=== PATIENT | male | born 1975 | race African-American/Black ===

== ENCOUNTER 2017-04-28 14:01 | Emergency (ER) | payer SELFPAY ==
[2016-01-30 03:30] VITALS: BP 118/67
[~2017-04-28] VITALS: Ht 177.8 cm; Wt 70.3 kg
[2017-04-28] MEDS ORDERED: LIDOCAINE 2% VISCOUS 15 ML SOLUTION. SWSW ONE (14:30)
[2017-04-28] MEDS ORDERED: IBUPROFEN 800 MG TABLET. PO ONE (14:30)
[2017-04-28] MEDS ORDERED: ACETAMINOPHEN 500 MG TABLET PO ONE (14:30)
[2017-04-28] MEDS ORDERED: AMOX875T PO (14:39)
--- NOTE | 2017-04-28 14:39 | PHYS DOC ---
Past Medical History Past Medical History: No Pertinent History Past Surgical History: No Surgical History Alcohol Use: Occasionally Drug Use: None Adult General Chief Complaint Chief Complaint: SORE THROAT HPI HPI Patient is a 41 year old male with history of strep infection who presents with a fever and a sore throat that began yesterday. Patient denies any cough or congestion. Review of Systems Review of Systems Constitutional: fever Eyes: Denies change in visual acuity, redness, or eye pain [] HENT: sore throat [] Respiratory: Denies cough or shortness of breath [] Cardiovascular: No additional information not addressed in HPI [] GI: Denies abdominal pain, nausea, vomiting, bloody stools or diarrhea [] : Denies dysuria or hematuria [] Musculoskeletal: Denies back pain or joint pain [] Integument: Denies rash or skin lesions [] Neurologic: Denies headache, focal weakness or sensory changes [] Endocrine: Denies polyuria or polydipsia [] Current Medications Current Medications Current Medications Medications (Trade) Dose Ordered Sig/[facility] Start Time Stop Time Status Last Admin Dose Admin Acetaminophen (Tylenol) 1,000 mg 1X ONCE 04/28/17 14:30 04/28/17 14:31 DC 04/28/17 14:32 1,000 MG Ibuprofen (Motrin) 800 mg 1X ONCE 04/28/17 14:30 04/28/17 14:31 DC 04/28/17 14:32 800 MG Lidocaine HCl (Viscous Lidocaine) 15 ml 1X ONCE 04/28/17 14:30 04/28/17 14:31 DC 04/28/17 14:32 15 ML Allergies Allergies Allergies Coded Allergies Type Severity Reaction Last Updated Verified No Known Drug Allergies 01/30/16 No Physical Exam Physical Exam Constitutional: Well developed, well nourished, no acute distress, non-toxic appearance. [] HENT: Normocephalic, atraumatic, bilateral external ears normal, oropharynx moist, no oral exudates, nose normal. [] +2 tonsils with mild erythema and small amount of exudate on the left side, midline uvula, +2 anterior cervical adenopathy. Eyes: PERRLA, EOMI, conjunctiva normal, no discharge. [] Neck: Normal range of motion, no tenderness, supple, no stridor. [] Cardiovascular:Heart rate regular rhythm, no murmur [] Lungs & Thorax: Bilateral breath sounds clear to auscultation [] Abdomen: Bowel sounds normal, soft, no tenderness, no masses, no pulsatile masses. [] Skin: Warm, dry, no erythema, no rash. [] Back: No tenderness, no CVA tenderness. [] Extremities: No tenderness, no cyanosis, no clubbing, ROM intact, no edema. [] Neurologic: Alert and oriented X 3, normal motor function, normal sensory function, no focal deficits noted. [] Psychologic: Affect normal, judgement normal, mood normal. [] Current Patient Data Vital Signs Vital Signs Date Time Temp Pulse Resp B/P (MAP) Pulse Ox O2 Delivery O2 Flow Rate FiO2 04/28/17 14:05 101.1 87 18 96 Room Air 101.1 EKG EKG [] Radiology/Procedures Radiology/Procedures [] Course & Med Decision Making Course & Med Decision Making Pertinent Labs and Imaging studies reviewed. (See chart for details) Patient is in the ED with symptoms of strep infection. He does have a positive strep test. Discharged with amoxicillin. He was febrile and the ED. Recommended Tylenol/ Motrin for fever or pain. Saltwater gargles also recommended. Follow- up with PCP in 1-2 weeks. Dragon Disclaimer Dragon Disclaimer This electronic medical record was generated, in whole or in part, using a voice recognition dictation system. Departure Departure Impression: Primary Impression: Strep pharyngitis Additional Impression: Fever Disposition: 01 HOME, SELF-CARE Condition: STABLE Referrals: NO PCP (PCP) Follow-up with your own doctor in 1-2 weeks Patient Instructions: Fever, Strep Throat Additional Instructions: You have strep throat infection. Use saltwater gargles as needed. Take Tylenol every 4 hours and Motrin every 6 hours as needed for pain or fever. Complete your antibiotics and follow-up with your doctor in 1-2 weeks. Come back to the ED if symptoms worsen. Scripts Amoxicillin (AMOXICILLIN) 875 Mg Tablet 1 TAB PO BID, #20 TAB Prov: MAXIMUS BUTT APRN 04/28/17 Problem Qualifiers Additional Impression: Fever Fever type: unspecified Qualified Codes: R50.9 - Fever, unspecified DAQUANMAXIMUS CLOTH BURLER Apr 28, 2017 14:39
[2017-04-29 09:57] LABS: NEGATIVE OBC STREP NEG; POSITIVE OBC STREP POS
== END 2017-04-28 14:46 | disposition home or self-care (01) ==
LOC: ER 14:01
DX: J02.0 Streptococcal pharyngitis (principal)
CPT/HCPCS: 87880; 99284

== ENCOUNTER 2017-10-03 03:54 | Emergency (ER) | payer OTHER ==
[~2017-10-03] VITALS: Ht 172.7 cm; Wt 77.1 kg
[~2017-10-03 03:54] MED LIST: AMOX875T PO
--- NOTE | 2017-10-03 05:51 | PHYS DOC ---
Past Medical History Past Medical History: No Pertinent History Past Surgical History: No Surgical History Alcohol Use: Rarely Drug Use: None Adult General Chief Complaint Chief Complaint: KNEE INJURY HPI HPI Patient is a 42 year old male who fell on curb yesterday about 2:30pm. his pain has worsened overnight. he is walking on it. no swelling, just aching. no other injuries Review of Systems Review of Systems Constitutional: Denies fever or chills [] Eyes: Denies change in visual acuity, redness, or eye pain [] HENT: Denies nasal congestion or sore throat [] Respiratory: Denies cough or shortness of breath [] Cardiovascular: No additional information not addressed in HPI [] GI: Denies abdominal pain, nausea, vomiting, bloody stools or diarrhea [] : Denies dysuria or hematuria [] Musculoskeletal: left knee pain Integument: Denies rash or skin lesions [] Neurologic: Denies headache, focal weakness or sensory changes [] Endocrine: Denies polyuria or polydipsia [] All other systems were reviewed and found to be within normal limits, except as documented in this note. Allergies Allergies Allergies Coded Allergies Type Severity Reaction Last Updated Verified No Known Drug Allergies 01/30/16 No Physical Exam Physical Exam Constitutional: Well developed, well nourished, no acute distress, non-toxic appearance. [] HENT: Normocephalic, atraumatic, bilateral external ears normal, oropharynx moist, no oral exudates, nose normal. [] Eyes: PERRLA, EOMI, conjunctiva normal, no discharge. [] Neck: Normal range of motion, no tenderness, supple, no stridor. [] Cardiovascular:Heart rate regular rhythm, no murmur [] Lungs & Thorax: Bilateral breath sounds clear to auscultation [] Abdomen: Bowel sounds normal, soft, no tenderness, no masses, no pulsatile masses. [] Skin: Warm, dry, no erythema, no rash. [] Back: No tenderness, no CVA tenderness. [] Extremities: left knee abrasion anteriorly. no swelling. full flexion of knee against resistance. no AP or medial lateral laxity. normal DP pulses. no crepitus Neurologic: Alert and oriented X 3, normal motor function, normal sensory function, no focal deficits noted. [] Psychologic: Affect normal, judgement normal, mood normal. [] Current Patient Data Vital Signs Vital Signs Date Time Temp Pulse Resp B/P (MAP) Pulse Ox O2 Delivery O2 Flow Rate FiO2 10/03/17 07:04 68 18 135/75 (95) 98 10/03/17 03:55 98.3 Room Air 98.3 EKG EKG [] Radiology/Procedures Radiology/Procedures no fracture seen[] Course & Med Decision Making Course & Med Decision Making Pertinent Labs and Imaging studies reviewed. (See chart for details) hydrocodone for pain. knee immobilizer and crutches. f/u ortho in 1 week if symptoms not improved [] Dragon Disclaimer Dragon Disclaimer This electronic medical record was generated, in whole or in part, using a voice recognition dictation system. Departure Departure Impression: Primary Impression: Knee injury Disposition: 01 HOME, SELF-CARE Condition: STABLE Referrals: SHELBIE GALEANA II, MD Patient Instructions: Combined Knee Ligament Sprain-SportsMed Additional Instructions: hydrocodone and ibuprofen for pain. ice and elevation. knee immobilizer for comfort. Follow-up with Dr. Galeana in 1 week if symptoms continue. return if worse SADNRA LEAL MD Oct 03, 2017 05:51
--- NOTE | 2017-10-03 07:02 | RAD ---
Indication: Fall and left knee pain. Time of exam 0545 hours. 3 views of the left knee were obtained. The alignment is normal. The joint spaces are well maintained. Mild medial compartmental joint space narrowing is seen. There is some spurring of the tibial spines. No fracture, dislocation or effusion is seen. Impression: Mild degenerative changes. No acute bony abnormality is detected.
[2017-10-03 07:04] VITALS: BP 135/75
== END 2017-10-03 07:00 | disposition home or self-care (01) ==
LOC: ER 03:54
DX: S80.212A Abrasion, left knee, initial encounter (principal); W10.1XXA Fall (on)(from) sidewalk curb, initial encounter; Y93.89 Activity, other specified; Y99.8 Other external cause status; Y92.89 Other specified places as the place of occurrence of the external cause
CPT/HCPCS: 29505; 73562; 99284-25

== ENCOUNTER 2020-05-20 06:57 | Emergency (ER) | payer SELFPAY ==
[~2020-05-20] VITALS: Ht 177.8 cm; Wt 65.9 kg
[2020-05-20] MEDS ORDERED: TETRACAINE 0.5% OPHTH SOLUTION 4ML BOTTLE. ONE (07:00)
[2020-05-20] MEDS ORDERED: TETRACAINE 0.5% OPHTH SOLUTION 4ML BOTTLE. OS ONE (07:30)
[2020-05-20] MEDS ORDERED: ERYT1OIN6 OP (07:30)
[2020-05-20] MEDS ORDERED: FLUORESCEIN OPHTH TEST STRIP. OS ONE (07:30)
--- NOTE | 2020-05-20 07:42 | PHYS DOC ---
Past Medical History Past Medical History: No Pertinent History Past Surgical History: No Surgical History Smoking Status: Current Every Day Smoker Alcohol Use: Rarely Drug Use: None General Adult EDM: Chief Complaint: FOREIGN BODY/EYES HPI: HPI: 44-year-old male presents emergency department today with concerns that he has a bug crawling in his eye. He comes in by EMS. It is been there throughout the night and he has been trying to get it out and he has been unable to. He denies any vision changes. He denies any recent exposures where he would have gotten something in his eye. He has an itching pain in his eye that is nonradiating mild to moderate and without alleviating factors. Review of systems negative for chest pain shortness of breath vomiting fevers chills. All other review of systems is negative. ED course: 44-year-old male presenting with concerns for having an insect in his eye. On examination he has erythema of the conjunctiva without any objective insects in his eye. I was able to remove a few very small pieces of material that was not adamant and did not appear to be an insect. Fluorescein stain of the eye shows a negative Anatoliy's test. No signs of corneal abrasions. We will give the patient erythromycin ointment and refer him to ophthalmology to be evaluated in clinic this morning directly from the ER. Heart Score: Risk Factors: Risk Factors: DM, Current or recent (<one month) smoker, HTN, HLP, family history of CAD, obesity. Risk Scores: Score 0 - 3: 2.5% MACE over next 6 weeks - Discharge Home Score 4 - 6: 20.3% MACE over next 6 weeks - Admit for Clinical Observation Score 7 - 10: 72.7% MACE over next 6 weeks - Early Invasive Strategies Allergies: Allergies: Allergies Coded Allergies Type Severity Reaction Last Updated Verified No Known Drug Allergies 01/30/16 No Physical Exam: PE: Constitutional: Well developed, well nourished, no acute distress, non-toxic appearance. [] HENT: Normocephalic, atraumatic, bilateral external ears normal, oropharynx moist, no oral exudates, nose normal. [] Eyes: PERRLA, EOMI, conjunctiva normal, no discharge. [] Eye exam: Visual acuity normal limits Visual gilmore within normal limits External exam: No lacerations, some swelling with minimal erythema. Extraocular movements intact Pupils: Equal round and reactive to light Lids without foreign bodies Conjunctiva erythematous with swelling without any foreign bodies or insects Cornea: No abrasions ulcerations or foreign bodies. Neck: Normal range of motion, no tenderness, supple, no stridor. [] Cardiovascular:Heart rate regular rhythm, no murmur [] Lungs & Thorax: Bilateral breath sounds clear to auscultation [] Abdomen: Bowel sounds normal, soft, no tenderness, no masses, no pulsatile masses. [] Skin: Warm, dry, no erythema, no rash. [] Back: No tenderness, no CVA tenderness. [] Extremities: No tenderness, no cyanosis, no clubbing, ROM intact, no edema. [] Neurologic: Alert and oriented X 3, normal motor function, normal sensory function, no focal deficits noted. [] Psychologic: Affect normal, judgement normal, mood normal. [] EKG: EKG: [] Radiology/Procedures: Radiology/Procedures: [] Course & Med Decision Making: Course & Med Decision Making Pertinent Labs and Imaging studies reviewed. (See chart for details) [] Dragon Disclaimer: Dragon Disclaimer: This electronic medical record was generated, in whole or in part, using a voice recognition dictation system. Departure Departure Impression: Primary Impression: Conjunctivitis Disposition: 01 HOME, SELF-CARE Condition: STABLE Referrals: NO PCP (PCP) Kathleen COLLAZO MD directly from ED Patient Instructions: Eye - Foreign Body, [id number] Scripts Erythromycin Base (Erythromycin) 1 Gm Oint...g. 1 GM OP QID for 7 Days, #[address] ~1 cm of ointment on the left eye Prov: BENJAMIN ARTIS MD 05/20/20 Justicifation of Admission Dx: Justifications for Admission: Justification of Admission Dx: N/A BENJAMIN ARTIS MD May 20, 2020 07:42
[2020-05-20] MEDS ORDERED: ERYTHROMYCIN 0.5% OPHTH OINTMENT 1GM TUBE. OS ONE (08:00)
[2020-05-20 10:35] VITALS: BP 146/88
[2020-05-20] MEDS ORDERED: NEO/3.5O OS (11:38)
== END 2020-05-20 12:00 | disposition home or self-care (01) ==
LOC: ER 06:57
DX: H10.9 Unspecified conjunctivitis (principal); F17.200 Nicotine dependence, unspecified, uncomplicated
CPT/HCPCS: 99285-25

== ENCOUNTER 2021-12-27 10:26 | Emergency (ER) | payer SELFPAY ==
[~2021-12-27] VITALS: Ht 193 cm; Wt 89.0 kg
[~2021-12-27 10:26] MED LIST changes: +AMOX1TAB61 PO; +ERYT1OIN6 OP; +HYDR-3164 PO; +NEO/3.5O OS; +OSEL75CA PO
[2021-12-27 11:05] VITALS: BP 135/83
[2021-12-27] MEDS ORDERED: IBUP-1007 PO (11:12)
[2021-12-27] MEDS ORDERED: CEPH500T PO (11:12)
--- NOTE | 2021-12-27 11:12 | PHYS DOC ---
Past Medical History Past Medical History: No Pertinent History Past Surgical History: No Surgical History Smoking Status: Current Every Day Smoker Alcohol Use: None Drug Use: None General Adult EDM: Chief Complaint: FACE PROBLEM HPI: HPI: Patient is a 46-year-old male who presents today with left facial swelling. Patient states his swelling started on Saturday night, he states that he has had multiple teeth on the left side that have been bothering him, and he does not have a primary dentist that he follows. Patient denies chest pain, shortness of breath, fever and chills. Review of Systems: Review of Systems: Constitutional: Denies fever or chills. [] Eyes: Denies change in visual acuity. [] HENT: Left facial pain and swelling denies nasal congestion or sore throat. [] Respiratory: Denies cough or shortness of breath. [] Cardiovascular: Denies chest pain or edema. [] GI: Denies abdominal pain, nausea, vomiting, bloody stools or diarrhea. [] : Denies dysuria. [] Musculoskeletal: Denies back pain or joint pain. [] Integument: Denies rash. [] Neurologic: Denies headache, focal weakness or sensory changes. [] Endocrine: Denies polyuria or polydipsia. [] Lymphatic: Denies swollen glands. [] Psychiatric: Denies depression or anxiety. [] Heart Score: C/O Chest Pain: No Risk Factors: Risk Factors: DM, Current or recent (<one month) smoker, HTN, HLP, family history of CAD, obesity. Risk Scores: Score 0 - 3: 2.5% MACE over next 6 weeks - Discharge Home Score 4 - 6: 20.3% MACE over next 6 weeks - Admit for Clinical Observation Score 7 - 10: 72.7% MACE over next 6 weeks - Early Invasive Strategies Allergies: Allergies: Allergies Coded Allergies Type Severity Reaction Last Updated Verified No Known Drug Allergies 01/30/16 No Physical Exam: PE: Constitutional: Well developed, well nourished, no acute distress, non-toxic appearance. [] HENT: Left facial swelling noted, no erythema no warmth, no swelling into the orbital area as well, multiple dental caries noted on the left upper jaw area with pain with slight palpation to the teeth in that area, scant amount of bleeding from the gum noted, no purulent drainage, no abscess. Eyes: PERRLA, EOMI, conjunctiva normal, no discharge. [] Neck: Normal range of motion, no tenderness, supple, no stridor. [] Cardiovascular:Heart rate regular rhythm, no murmur [] Lungs & Thorax: Bilateral breath sounds clear to auscultation [] Abdomen: Bowel sounds normal, soft, no tenderness, no masses, no pulsatile masses. [] Skin: Warm, dry, no erythema, no rash. [] Back: No tenderness, no CVA tenderness. [] Extremities: No tenderness, no cyanosis, no clubbing, ROM intact, no edema. [] Neurologic: Alert and oriented X 3, normal motor function, normal sensory function, no focal deficits noted. [] Psychologic: Affect normal, judgement normal, mood normal. [] EKG: EKG: [] Radiology/Procedures: Radiology/Procedures: [] Course & Med Decision Making: Course & Med Decision Making Pertinent Labs and Imaging studies reviewed. (See chart for details) Inform patient that he will need to see a dentist for further management of his dental pain, patient will be given an oral antibiotic, along with Motrin for his pain, patient was given a list of dental clinics here in the area that he can follow-up with for further management of this dental issue. Patient verbalized understanding for the need for dental follow-up and is agreeable with the plan of care. Mirian Disclaimer: Mirian Disclaimer: This electronic medical record was generated, in whole or in part, using a voice recognition dictation system. Departure Departure Impression: Primary Impression: Pain, dental Disposition: HOME / SELF CARE / HOMELESS Condition: STABLE Referrals: NO PCP (PCP) Patient Instructions: Dental Caries Additional Instructions: Cephalexin 500 mg take 1 tablet 4 times daily for 10 full days Motrin 600 mg take 1 tablet every 6 hours as needed for pain Follow-up with the dental clinic listed on the paper that I gave you for further management of your dental issues Return to the emergency department if your face becomes more swollen, reddened, or warmth noted or you develop a fever. Scripts Ibuprofen (IBUPROFEN) 600 Mg Tablet 600 MG PO PRN Q6HRS PRN for INFLAMMATION, #30 TAB Prov: EILZA PIERSON LINE STAKER 12/27/21 Cephalexin (CEPHALEXIN) 500 Mg Tablet 1 CAP PO QID, #40 CAP Prov: ELIZA PIERSON APRN 12/27/21 ELIZA PIERSON LINE STAKER Dec 27, 2021 11:12
== END 2021-12-27 11:19 | disposition home or self-care (01) ==
LOC: ER 10:26
DX: K08.89 Other specified disorders of teeth and supporting structures (principal); F17.200 Nicotine dependence, unspecified, uncomplicated
CPT/HCPCS: 99283